=== PATIENT | male | born 1960 | race Caucasian/White ===

== ENCOUNTER → 2018-04-24 16:46 | Outpatient (CLI) | payer OTHER | END | disposition home or self-care (01) | LOC: D.CT 16:46 | DX: I10 Essential (primary) hypertension (principal); G47.30 Sleep apnea, unspecified ==

== ENCOUNTER → 2020-08-19 14:33 | Outpatient (CLI) | payer OTHER | END | disposition home or self-care (01) | LOC: D.RAD 14:33 | PROVIDERS: ATTEND Nurse Practitioner Family | DX: R06.02 Shortness of breath (principal) ==